=== PATIENT | male | born 1965 | race Caucasian/White ===

== ENCOUNTER 2025-08-07 12:00 | Emergency (ER) | payer OTHER ==
[~2025-08-07] VITALS: Ht 165.1 cm; Wt 92.2 kg
[2025-08-07 13:25] LABS: BASOPHILS 1.0 % (0.2-1.2); EOSINOPHILS 2.2 % (0.8-7.0); LYMPHOCYTES 27.8 % (21.8-53.1); MCH 29.1 PG (25.7-32.2); MCHC 33.9 g/dL (32.3-36.5); MCV 85.8 fL (79.0-92.2); MONOCYTES 7.7 % (5.3-12.2); NEUTROPHILS 61.1 % (34.0-67.9); RBC 4.71 M/uL (4.63-6.08)
[2025-08-07 13:37] LABS: BLOOD/HGB, URINE NEGATIVE (Negative); KETONE, URINE TRACE (Negative); LEUK ESTERASE, URINE NEGATIVE (negative); NITRITE, URINE NEGATIVE (negative)
[2025-08-07] MEDS ORDERED: KETOROLAC TROMETHAMINE 15 MG/ML VIAL IV ONE (13:45)
[2025-08-07 13:46] LABS: ALT (SGPT) 19.0 U/L (14-59); AST (SGOT) 13.0 U/L (15-37); GLOMERULAR FILTRATION RATE,EST 101.0 mL/min (>60); PROTEIN, TOTAL 7.2 g/dL (6.4-8.2); UREA NITROGEN 13.0 mg/dL (7-18)
[2025-08-07] MEDS ORDERED: TAMSULOSIN HCL0.4 MG PO (16:20)
[2025-08-07 16:38] VITALS: BP 125/83
== END 2025-08-07 16:41 | disposition other institution, planned readmission (95) ==
LOC: ED 12:00
PROVIDERS: Emergency Medicine
DX: N20.0 Calculus of kidney (principal); Z02.89 Encounter for other administrative examinations
CPT/HCPCS: 36415; 74176; 76705; 80053; 81003; 83690; 85025; 96374; 99284-25; J1885